=== PATIENT | male | born 1965 | race African-American/Black ===

== ENCOUNTER 2020-01-06 02:01 | Inpatient (IN) | payer MEDICAID ==
[~2020-01-06] VITALS: Ht 175.3 cm; Wt 133.4 kg
[2020-01-06] MEDS ORDERED: NITROGLYCERIN OINT 1GM/INCH UDPKT TD ONE (03:00)
[2020-01-06] MEDS ORDERED: FUROSEMIDE 40MG/4ML VIAL IV ONE (03:00)
[2020-01-06 03:07] LABS: HEMATOCRIT. 26.5 % (42.0-52.0); HEMOGLOBIN. 8.6 g/dL (14.0-18.0); MEAN CORPUSCULAR HEMOGLOBIN 24.1 pg (28.0-32.0); MEAN CORPUSCULAR VOLUME 74.5 fL (80.0-94.0); PLATELET 352 x1000/uL (130-400); RED BLOOD CELL COUNT 3.56 mill/uL (4.7-6.1); RED CELL DISTRIBUTION WIDTH 21.4 % (11.6-14.6)
[2020-01-06 03:29] LABS: CHLORIDE 107 mEq/L (98-107)
[2020-01-06 03:34] LABS: ETHANOL BLOOD < 10 mg/dL
[2020-01-06 05:08] LABS: PLATELET ESTIMATE NORMAL
[2020-01-06] MEDS ORDERED: CLONIDINE 0.2MG TABLET PO SCH (07:00)
[2020-01-06] MEDS ORDERED: BENZONATATE 100MG CAPSULE PO PRN (09:15)
[2020-01-06] MEDS: FUROSEMIDE 40MG/4ML VIAL IVP SCH ×2 (09:30→17:52)
[2020-01-06] MEDS: DILTIAZEM HCL 60MG TABLET PO SCH ×2 (10:00→17:53)
[2020-01-06 16:50] VITALS: BP 133/78
[2020-01-06] MEDS ORDERED: RIVAROXABAN 10 MG TABLET PO SCH (17:00)
[2020-01-06] MEDS ORDERED: FURO40TA5 MT (17:01)
[2020-01-06] MEDS ORDERED: CARV25TA47 MT (17:01)
[2020-01-06] MEDS ORDERED: DILT180T11 MT (17:01)
[2020-01-06] MEDS ORDERED: ASPI-1158 MT (17:01)
[2020-01-06] MEDS ORDERED: METF-816 MT (17:01)
[2020-01-06] MEDS ORDERED: GLIP2.5T3 PO (17:01)
[2020-01-06] MEDS ORDERED: RIVA20TA MT (17:01)
[2020-01-06] MEDS ORDERED: AMLO10TA80 MT (17:01)
[2020-01-06] MEDS ORDERED: SIMV-43 MT (17:01)
[2020-01-06] MEDS ORDERED: DEXTROSE 50% WATER 50ML SYRINGE IV PRN (18:30)
[2020-01-06] MEDS: CARVEDILOL 12.5MG TABLET PO SCH (20:45)
[2020-01-06] MEDS: BLOOD SUGAR DIAGNOSTIC STRIP TEST SCH (20:46)
[2020-01-06] MEDS: INSULIN LISPRO 100 UNITS/ML SUBCUT SCH (20:46)
[2020-01-07 00:06] VITALS: BP 116/81
[2020-01-07] MEDS: DILTIAZEM HCL 60MG TABLET PO SCH ×5 (00:20→23:43)
[2020-01-07 04:46] VITALS: BP 141/99
[2020-01-07 06:08] LABS: BASOPHILS % 0.6 % (0.0-2.0); CHLORIDE 106 mEq/L (98-107); EOSINOPHILS % 5.1 % (0.0-5.0); HEMATOCRIT. 25.1 % (42.0-52.0); LYMPHOCYTES % 7.1 % (20.0-50.0); MEAN CORPUSCULAR HEMOGLOBIN 23.9 pg (28.0-32.0); MEAN CORPUSCULAR VOLUME 74.8 fL (80.0-94.0); MEAN PLATELET VOLUME 7.5 fl (7.4-10.4); MONOCYTES % 13.5 % (2.0-8.0); NEUTROPHILS % 73.7 % (40.0-76.0); PLATELET 322 x1000/uL (130-400); RED BLOOD CELL COUNT 3.35 mill/uL (4.7-6.1); RED CELL DISTRIBUTION WIDTH 21.1 % (11.6-14.6)
[2020-01-07] MEDS: BLOOD SUGAR DIAGNOSTIC STRIP TEST SCH ×4 (06:28→20:52)
[2020-01-07] MEDS: INSULIN LISPRO 100 UNITS/ML SUBCUT SCH ×4 (06:28→20:58)
[2020-01-07 08:00] VITALS: BP 145/89
[2020-01-07] MEDS: FERROUS SULFATE 325MG TABLET PO SCH ×3 (09:01→17:06)
[2020-01-07] MEDS: FUROSEMIDE 40MG/4ML VIAL IVP SCH ×2 (09:01→17:06)
[2020-01-07] MEDS: CARVEDILOL 12.5MG TABLET PO SCH ×2 (09:01→20:52)
[2020-01-07 12:00] VITALS: BP 138/81
[2020-01-07 16:00] VITALS: BP 102/54
[2020-01-07] MEDS: RIVAROXABAN 20 MG TABLET PO SCH (17:25)
[2020-01-07 20:00] VITALS: BP 100/62
[2020-01-07 23:22] LABS: CLARITY URINE CLEAR (CLEAR); COLOR URINE YELLOW (YELLOW); KETONES URINE NEGATIVE (NEGATIVE); LEUKOCYTE ESTERASE URINE NEGATIVE (NEGATIVE); NITRITE URINE NEGATIVE (NEGATIVE); OCCULT BLOOD URINE TRACE (NEGATIVE); PROTEIN URINE NEGATIVE (NEGATIVE); SPECIFIC GRAVITY URINE 1.011 (1.005-1.030)
[2020-01-07 23:45] LABS: *AMPHETAMINES SCREEN URINE NEGATIVE (NEGATIVE); *BARBITURATES SCREEN URINE NEGATIVE (NEGATIVE); *COCAINE SCREEN URINE NEGATIVE (NEGATIVE); METHADONE URINE SCREEN NEGATIVE (NEGATIVE)
[2020-01-07 23:46] LABS: CANNABINOID URINE SCREEN NEGATIVE (NEGATIVE); PHENCYCLIDINE URINE SCREEN NEGATIVE (NEGATIVE)
[2020-01-07 23:49] LABS: *BENZODIAZEPINES SCREEN URINE NEGATIVE (NEGATIVE)
[2020-01-08] VITALS: BP 141/86
[2020-01-08 04:00] VITALS: BP 127/79
[2020-01-08] MEDS: DILTIAZEM HCL 60MG TABLET PO SCH ×4 (05:38→23:52)
[2020-01-08 06:15] LABS: BASOPHILS % 0.8 % (0.0-2.0); EOSINOPHILS % 6.2 % (0.0-5.0); HEMATOCRIT. 25.3 % (42.0-52.0); HEMOGLOBIN. 8.1 g/dL (14.0-18.0); LYMPHOCYTES % 7.6 % (20.0-50.0); MEAN CORPUSCULAR VOLUME 74.8 fL (80.0-94.0); MEAN PLATELET VOLUME 7.5 fl (7.4-10.4); MONOCYTES % 13.8 % (2.0-8.0); NEUTROPHILS % 71.6 % (40.0-76.0); PLATELET 339 x1000/uL (130-400); RED BLOOD CELL COUNT 3.38 mill/uL (4.7-6.1); RED CELL DISTRIBUTION WIDTH 20.7 % (11.6-14.6)
[2020-01-08 06:27] LABS: CHLORIDE 105 mEq/L (98-107)
[2020-01-08 08:00] VITALS: BP 136/95
[2020-01-08] MEDS: BLOOD SUGAR DIAGNOSTIC STRIP TEST SCH ×4 (08:06→21:00)
[2020-01-08] MEDS: INSULIN LISPRO 100 UNITS/ML SUBCUT SCH ×4 (08:10→20:45)
[2020-01-08] MEDS: CARVEDILOL 12.5MG TABLET PO SCH ×2 (09:10→20:44)
[2020-01-08] MEDS: FUROSEMIDE 40MG/4ML VIAL IVP SCH ×2 (09:10→17:01)
[2020-01-08] MEDS: FERROUS SULFATE 325MG TABLET PO SCH ×3 (09:10→19:40)
[2020-01-08] MEDS ORDERED: HYDROMORPHONE HCL/PF 2MG/ML CPJ IV PRN (10:45)
[2020-01-08 12:00] VITALS: BP 143/98
[2020-01-08 16:00] VITALS: BP 154/96
[2020-01-08] MEDS: RIVAROXABAN 20 MG TABLET PO SCH (17:54)
[2020-01-08 20:00] VITALS: BP 128/87
[2020-01-09] VITALS: BP 112/74
[2020-01-09 04:00] VITALS: BP 155/101
[2020-01-09] MEDS: DILTIAZEM HCL 60MG TABLET PO SCH (05:26)
[2020-01-09 06:34] LABS: BASOPHILS % 0.5 % (0.0-2.0); EOSINOPHILS % 4.6 % (0.0-5.0); HEMATOCRIT. 24.8 % (42.0-52.0); HEMOGLOBIN. 8.1 g/dL (14.0-18.0); LYMPHOCYTES % 7.6 % (20.0-50.0); MEAN CORPUSCULAR HEMOGLOBIN 24.3 pg (28.0-32.0); MEAN CORPUSCULAR VOLUME 74.1 fL (80.0-94.0); MEAN PLATELET VOLUME 7.4 fl (7.4-10.4); MONOCYTES % 10.6 % (2.0-8.0); NEUTROPHILS % 76.7 % (40.0-76.0); PLATELET 346 x1000/uL (130-400); RED BLOOD CELL COUNT 3.34 mill/uL (4.7-6.1); RED CELL DISTRIBUTION WIDTH 20.9 % (11.6-14.6)
[2020-01-09 06:41] LABS: CHLORIDE 104 mEq/L (98-107)
[2020-01-09] MEDS: FUROSEMIDE 40MG/4ML VIAL IVP SCH ×2 (06:49→17:54)
[2020-01-09 08:00] VITALS: BP 143/96
[2020-01-09] MEDS: INSULIN LISPRO 100 UNITS/ML SUBCUT SCH ×3 (08:10→21:40)
[2020-01-09] MEDS: CARVEDILOL 12.5MG TABLET PO SCH ×2 (08:13→21:22)
[2020-01-09] MEDS: FERROUS SULFATE 325MG TABLET PO SCH ×3 (08:14→17:54)
[2020-01-09 12:00] VITALS: BP 147/105
[2020-01-09] MEDS: DILTIAZEM HCL 90MG TABLET PO SCH ×3 (13:16→23:38)
[2020-01-09 16:00] VITALS: BP 143/100
[2020-01-09] MEDS: RIVAROXABAN 20 MG TABLET PO SCH (17:53)
[2020-01-09 20:00] VITALS: BP 125/86
[2020-01-09] MEDS: BLOOD SUGAR DIAGNOSTIC STRIP TEST SCH (21:40)
[2020-01-10] VITALS: BP 121/82
[2020-01-10 04:00] VITALS: BP 126/90
[2020-01-10] MEDS: DILTIAZEM HCL 90MG TABLET PO SCH ×2 (05:58→13:24)
[2020-01-10] MEDS: FUROSEMIDE 40MG/4ML VIAL IVP SCH (06:22)
[2020-01-10] MEDS: INSULIN LISPRO 100 UNITS/ML SUBCUT SCH ×2 (07:07→13:26)
[2020-01-10] MEDS: BLOOD SUGAR DIAGNOSTIC STRIP TEST SCH ×2 (07:07→12:40)
[2020-01-10 07:37] LABS: BASOPHILS % 1.1 % (0.0-2.0); EOSINOPHILS % 4.5 % (0.0-5.0); HEMOGLOBIN. 8.1 g/dL (14.0-18.0); LYMPHOCYTES % 7.4 % (20.0-50.0); MEAN CORPUSCULAR HEMOGLOBIN 24.9 pg (28.0-32.0); MEAN CORPUSCULAR VOLUME 74.1 fL (80.0-94.0); MEAN PLATELET VOLUME 7.3 fl (7.4-10.4); MONOCYTES % 11.4 % (2.0-8.0); NEUTROPHILS % 75.6 % (40.0-76.0); PLATELET 346 x1000/uL (130-400); RED BLOOD CELL COUNT 3.24 mill/uL (4.7-6.1); RED CELL DISTRIBUTION WIDTH 21.2 % (11.6-14.6)
[2020-01-10 07:53] LABS: CHLORIDE 105 mEq/L (98-107)
[2020-01-10 08:00] VITALS: BP 121/85
[2020-01-10] MEDS: FERROUS SULFATE 325MG TABLET PO SCH ×2 (09:52→13:24)
[2020-01-10] MEDS: CARVEDILOL 12.5MG TABLET PO SCH (09:52)
[2020-01-11 09:13] LABS: OPIATES URINE SCREEN NEGATIVE (NEGATIVE)
== END 2020-01-10 15:12 | disposition left against medical advice (07) | DRG 194 ==
LOC: ER 02:01 → 7WST 05:24 → EDBEDREQTM 05:27 → EDBEDREQ 05:27 → ENRESERV 15:34
PROVIDERS: ADMIT Internal Medicine; ATTEND Internal Medicine
DX: I11.0 Hypertensive heart disease with heart failure (principal); J96.00 Acute respiratory failure, unspecified whether with hypoxia or hypercapnia; N17.0 Acute kidney failure with tubular necrosis; E11.319 Type 2 diabetes mellitus with unspecified diabetic retinopathy without macular edema; I48.92 Unspecified atrial flutter; E66.01 Morbid (severe) obesity due to excess calories; G90.8 Other disorders of autonomic nervous system; I27.20 Pulmonary hypertension, unspecified; I50.23 Acute on chronic systolic (congestive) heart failure; D64.9 Anemia, unspecified; E03.9 Hypothyroidism, unspecified; I42.8 Other cardiomyopathies; E78.5 Hyperlipidemia, unspecified; Z79.899 Other long term (current) drug therapy; Z68.41 Body mass index [BMI] 40.0-44.9, adult; Z79.01 Long term (current) use of anticoagulants
CPT/HCPCS: 36415; 71045; 80048; 80053; 80061; 80305; 80320; 81003; 82270; 82728; 82962; 83036; 83540; 83550; 83880; 84439; 84443; 84484; 85025; 93005; 93306; 99285; J1815; J1940; G0480

== ENCOUNTER 2020-09-15 13:37 | Emergency (ER) | payer MEDICAID ==
[~2020-09-15] VITALS: Ht 175.3 cm; Wt 104.0 kg
[~2020-09-15 13:37] MED LIST: AMLO10TA80 MT; ASPI-1158 MT; CARV25TA47 MT; DILT180T11 MT; FURO40TA5 MT; GLIP2.5T3 PO; METF-816 MT; RIVA20TA MT; SIMV-43 MT
[2020-09-15 13:45] VITALS: BP 134/80
== END 2020-09-15 16:40 | disposition home or self-care (01) ==
LOC: ER 14:10
DX: K59.00 Constipation, unspecified (principal); I11.0 Hypertensive heart disease with heart failure; I50.9 Heart failure, unspecified; E11.9 Type 2 diabetes mellitus without complications; E78.00 Pure hypercholesterolemia, unspecified; Z79.899 Other long term (current) drug therapy; Z98.890 Other specified postprocedural states
CPT/HCPCS: 93005; 99283